=== PATIENT | female | born 1985 ===

== ENCOUNTER → 2017-09-24 12:07 | Outpatient (CLI) | payer SELFPAY ==
--- NOTE | 2017-09-24 12:09 | DI.US.S_ITS ---
PROCEDURE: US OB >= 14 WEEKS FETUS INDICATIONS: ANATOMY OUTSIDE/PRIOR DATING DATA: Last menstrual period (LMP): 05/21/17. LMP-based estimated date of delivery (TIGIST): 02/25/18. First dating scan (date and location): 07/21/17. Estimated date of delivery (TIGIST) from first dating scan: 02/23/18. TECHNIQUE: Real-time scanning was performed of the fetus, with image documentation and biometric measurements. COMPARISON: [facility], , US OB >= 14 WEEKS FETUS, 09/15/2017, 11:26. [facility], , OB COMPLETE LESS THAN 14 WKS, 07/21/2017, 9:16. FINDINGS: General: A single living intrauterine gestation is present. Presentation: Transverse with head towards maternal right Placenta: Placental position is posterior, without previa. Amniotic fluid index: 13.6 cm, normal range is 5-24 cm. heart rate: 158 beats per minute. Maternal cervical canal: 3.5 cm in length. biometrics: Biparietal diameter: 4.1 cm, 18 weeks 2 days Head circumference: 15.4 cm, 18 weeks 3 days Abdominal circumference: 14.4 cm, 19 weeks 5 days Femur length: 2.7 cm, 18 weeks 2 days Estimated gestational age from initial scan: 18 weeks 2 days Composite gestational age from present scan: 18 weeks 5 days Estimated weight and percentile: 266 g, 84th percentile Measurement variability for biometric dating: +/- 7 days from 14 weeks to 15 weeks 6 days gestation, +/- 10 days from 16 weeks to 21 weeks 6 days gestation, +/- 2 weeks from 22 weeks to 27 weeks 6 days gestation, +/- 3 weeks for 28 weeks gestation or later. weight reference: 4500 g or EFW >90/95% is considered macrosomia or large for gestational age. EFW <10% is small for gestational age. EFW 5% or less is considered intra-uterine growth restriction. Anatomic survey: Neuro: Ventricles are non-dilated at less than 10 mm. Cisterna magna is normal at 3-11 mm. Cerebellum is normal in size and morphology. Nuchal skin fold: Normal at less than 6 mm between 14-21 weeks gestational age. Face: Nose and lips, facial profile are normal. Spine: No evidence for spina bifida. Heart: 4-chambered heart is present, with normal ventricular outflow tracts. Diaphragm: Diaphragm is intact. Stomach: Left-sided stomach is present. Kidneys: No hydronephrosis. Normal is less than 5 mm in 2nd trimester, less than 7 mm in 3rd trimester. Cord: 3-vessel cord has orthotopic insertion. Bladder: Normal in size. Extremities: All 4 extremities identified. IMPRESSION: 1. Single live intrauterine at 18 weeks 5 days (current TIGIST of 02/20/18) is concordant with clinical dates and has demonstrated appropriate interval growth. 2. No anatomic abnormalities are evident. Dictated by: Janes Garnett M.D. on 09/24/2017 at 16:07 Approved by: Janes Garnett M.D. on 09/24/2017 at 16:12
== END ==
PROVIDERS: Visit Provider Obstetrics & Gynecology
DX: Z34.92 Encounter for supervision of normal pregnancy, unspecified, second trimester (principal); Z3A.18 18 weeks gestation of pregnancy; Z36.89 Encounter for other specified antenatal screening
CPT/HCPCS: 76811